=== PATIENT | female | born 1980 ===

== ENCOUNTER 2021-07-13 06:36 | Day surgery (SDC) | payer OTHER ==
[2021-07-08 12:37] LABS: Hematocrit 31.4 % (36.0-45.0); Lymphocytes % 27.6 % (15.3-44.8); MPV 8.6 fL (7.6-11.3); RBC Red Blood Cell Count 5.34 M/uL (3.86-4.86)
--- NOTE | 2021-07-08 12:37 | RAD REPORT ---
EXAM DESCRIPTION: RAD - Chest Pa And Lat (2 Views) - 07/08/2021 12:20 pm CLINICAL HISTORY: Pre op pending hysterectomy Chest pain. COMPARISON: No comparisons FINDINGS: The lungs are clear. The heart is normal in size. No displaced fractures. IMPRESSION: No acute or concerning finding suspected.
[2021-07-08 13:27] LABS: Platelet Estimate ADEQ; White Blood Cell Scan OK (OK)
[2021-07-08 13:28] LABS: Anisocytosis 3+
[2021-07-08 14:00] LABS: Urine Appearance CLEAR (Clear); Urine Bilirubin NEGATIVE (Negative); Urine Blood Trace-intact (Negative); Urine Color YELLOW (Yellow); Urine Glucose NEGATIVE (Negative); Urine Protein NEGATIVE (Negative); Urine Urobilinogen 0.2 mg/dL (0.2-1.0); Urine pH 5.5 (5.0-7.0)
[2021-07-08 14:01] LABS: Urine Microscopic Reflex ORDER UMIC
[2021-07-08 14:12] LABS: Urine Bacteria <20 /HPF (<20); Urine RBC <5 /HPF (NONE SEEN)
[2021-07-13 06:52] LABS: Specific Gravity > 1.030 (1.005-1.030)
[2021-07-13] MEDS ORDERED: BUPIVACAINE 0.25% PF 10 ML VIAL ONE ×2 (06:54→07:20)
[2021-07-13] MEDS ORDERED: propofoL 200 MG/20 ML VIAL IV ONE (07:00)
[2021-07-13] MEDS ORDERED: ROCURONIUM 50 MG/5 ML VIAL IV ONE (07:00)
[2021-07-13] MEDS ORDERED: FENTANYL CITR 250 MCG/5 ML ONE (07:01)
[2021-07-13] MEDS ORDERED: Ringers Lactate 1,000 ML IV ONE ×3 (07:01→14:55)
[2021-07-13] MEDS ORDERED: MIDAZOLAM HCL 2 MG/2 ML INJ ONE (07:01)
[2021-07-13] MEDS ORDERED: CEFAZOLIN/SWI 2gm 2 GM/20 ML SYR ONE (07:01)
[2021-07-13] MEDS ORDERED: LIDOCAINE 2% MPF 5 ML VIAL ONE (07:01)
[2021-07-13] MEDS ORDERED: SCOPOLAMINE HYDROBROMIDE PATCH TD ONE (07:01)
[2021-07-13] MEDS ORDERED: Phenylephrine HCl 10 MG/ML 1 ML VIAL ONE (08:10)
[2021-07-13] MEDS: Ringers Lactate 1,000 ML IV ONE ×2 (08:33→08:45)
[2021-07-13] MEDS ORDERED: KETOROLAC 30 MG/ML INJ ONE (09:57)
[2021-07-13] MEDS ORDERED: GLYCOPYRROLATE 0.2 MG/ML SYR ONE (09:58)
[2021-07-13] MEDS ORDERED: dexAMETHasone 10 MG/ML VIAL ONE (09:58)
[2021-07-13] MEDS ORDERED: ONDANSETRON 4 MG/2 ML VIAL ONE ×2 (09:58→11:00)
[2021-07-13] MEDS ORDERED: NEOSTIGMINE 1 MG/ML -5 ML ONE (09:58)
--- NOTE | 2021-07-13 10:49 | P.BOP ---
Preoperative diagnosis: AUB-A/Pelvic pain Deep dyspareunia Postoperative diagnosis: same , endometriosis, uterovaginal prolapse Primary procedure: TLH BS endometriosis excision,USLS colpopexy,cystoscopy Secondary procedure: bilateral ovariopexy [employer] Specialist: Vicky Bustillo Estimated blood loss: 50 Specimen: uterus tubes, Rt pararectal,Lf USL/pararectal,Lf ovarian endo Findings: bilateral pararectal endo/ Lf USL,lateral wall,Lf ovary, C=-2 Complications: None Fluids & blood products: 1700LR/ 200 UO Transferred to: Recovery Room Condition: Good (cuff closure, o-rich both ends, 2-0vlock 2layercuff closure, PDS for USLS,3-0monoc for ovariopexy)
[2021-07-13] MEDS ORDERED: PROMETHAZINE INJ 25 MG/ML AMP IV PRN (10:51)
[2021-07-13] MEDS ORDERED: HYDROCODONE/APAP 5/325 MG TAB PO PRN (10:51)
[2021-07-13] MEDS ORDERED: IBUPROFEN 200 MG TAB PO PRN (10:51)
[2021-07-13] MEDS ORDERED: MEPERIDINE HCL 25 MG/ML SYR IM PRN (10:51)
[2021-07-13] MEDS: HYDROMORPHONE HCL 1 MG/ML INJ ONE ×2 (11:00→11:05)
[2021-07-13] MEDS ORDERED: HYDROMORPHONE HCL 1 MG/ML INJ ONE (11:09)
[2021-07-13] MEDS ORDERED: PROMETHAZINE INJ 25 MG/ML AMP ONE (12:22)
[2021-07-13 13:32] VITALS: O2SAT 100
[2021-07-13] MEDS ORDERED: HYDROCODONE/APAP 5/325 MG TAB ONE (14:23)
[2021-07-13 15:48] VITALS: BP 124/61; TEMP 98.1
--- NOTE | 2021-07-13 23:34 | OP ---
Date of Procedure: 07/13/2021 Surgeon: Jade Voss MD Traffic Engineering Director: Vicky Andino. Preoperative Diagnoses: Abnormal uterine bleeding-leiomyoma, pelvic pain, deep dyspareunia. Postoperative Diagnoses: Abnormal uterine bleeding-leiomyoma, pelvic pain, deep dyspareunia, endomet riosis, uterovaginal prolapse. Primary Procedures: 1.Total laparoscopic hysterectomy with bilateral salpingectomy. 2.Endometriosis excision. 3.Uterosacral ligament suspension, colpopexy. 4.Bilateral ovariopexy and cystoscopy. Anesthesia: General endotracheal. Estimated Blood Loss: 50. Specimens: Uterus, tubes, right uterosacral, pararectal, and left ovarian endometriosis. Complications: No complications. Drains: No drains. Condition: The patient's condition is stable. Fluids: 1700 LR. Urine Output: 200. Findings: Bilateral pararectal spaces with endometriosis that were deep infiltrating on the right si de somewhat closer to the rectum but safely and completely dissected. Left uterosacral, left lateral wall, and left ovarian endometriosis; all these were removed accordingly and bilateral ovariopexy wa s performed in order for the ovaries not to dangle and get stuck in the posterior cul-de-sac as well as to prevent ovarian torsion. Cuff closure was done with 0 Vicryl sutures at both ends. 2-0 V-Loc was used for a two-layer cuff cl osure and 2-0 PDS was used for uterosacral ligament suspension, 1 stitch on both sides, and then 0 Mo nocryl stitch was used for ovariopexy. Indications: The patient is a 40-year-old female, G3, P2-0-1-2. She has been having severe dyspareu binh and pelvic pain, abnormal bleeding, has been treated medically with multiple different options, m ost recently for the past 2 years treated with elagolix, which is a GnRH antagonist. She had improve d, however, due to prolonged use of the medication, she had to come off it, and her pain and dyspareu binh were impairing quality of life in the past, then the recurrence for the problem. If treatment wa s not addressed and for permanent treatment, we would give her different options of endometriosis exc ision with endometrial ablation less ideal than laparoscopic hysterectomy, bilateral salpingectomy, a nd endometriosis excision. Procedure In Detail: After being consented, she was taken back to the OR, placed in a supine fashion on the operating table. General anesthesia was given. 2 g of Ancef were given. SCDs were started. Abdomen, vulva, vagina, and perineum were prepped and draped in a sterile fashion. Time-out was do ne. Procedure started. Speculum was placed to expose the cervix and large VCare introduced into the uterus and fixed in plac e. On pelvic exam, it was noted that at point C the uterus was at -2, so a suspension of the uterosa cral was planned. Clay was placed to drain the bladder and attached for retrograde filling and the bag left on the yvan or for drainage. 1 cm infraumbilical incision was made with a scalpel using the open laparoscopy technique. Fascia wa s incised, tagged with 0 Vicryl sutures, and peritoneum was entered sharply. S retractors were place d, and after Lucio was introduced and adequately insufflated, site of entry was checked and it was u nremarkable. Abdominal surface was unremarkable as well. No endometriosis here. The patient was placed in Trendelenburg. Two 5 left and right lower quadrant ports were placed under direct vision and a 10 suprapubic port. 0.25% Marcaine was injected at all these sites at the level of the fascia and skin before the incisions were made. After visualizing both ovaries, the left ovarian surface of the medial aspect had endometriosis. The n, there was endo immediately lateral to the uterosacral ligament between the ureter and the uterosac ral. Then, there were implants on the left uterosacral and medial aspect extending into the left par arectal space. Then, there was a right pararectal nodular endometriosis, pretty close to the border of the rectum on the right side. All these implants were planned to be excised and then hysterectomy done. Peritoneum between the ureter and the uterosacral ligament was opened up. The ureter was dissected l aterally, safeguarded all the way to the level of the ureteric tunnel. Then, the peritoneum between the uterine artery and the ureter was dissected, dissecting the endometriosis off the underlying stru ctures and cleanly removing this all the way to the uterosacral. Then, this specimen was dissected c ircumferentially going posterior to the vaginal cuff into the pararectal space and incision was made. Then, the peritoneal incision carried inferiorly around the entire implant and pararectal space was opened up between the rectum and the left uterosacral ligament. Then, the dissection was performed excising from underlying pararectal fat. All the lesions were excised and handed out for permanent p athology. Then, the right pararectal space was opened up right on the posterior wall of the vagina and dissecti on was carried between the endometriotic implant and the rectum. The rectal wall was identified and this was dissected off carefully with a sharp dissection as well as LigaSure as needed for hemostasi s. Then, the entire implant was from the right border of the rectum onto the lateral wall. Then, the circumferential incision on the right side was also performed to isolate the peritoneal i mplants. Then, the pararectal fat pad was used as a marker to take down all the implants till normal fat was seen. No evidence of any injury to the rectal wall. The specimen was handed off for perman ent pathology. Then, the ovarian endo was cauterized and excised. Hysterectomy was then performed. Round ligament and utero-ovarian ligament were taken down with the help of the LigaSure. Broad ligament opened up anteriorly, posteriorly. Bladder flap raised. Vesse ls were identified and isolated. Then, vessels were taken down with the help of the LigaSure as well as cardinal ligaments on the opposite side. Similar dissection was performed taking the utero-ovari an ligaments. Then, taking out the round ligament, broad ligament anteriorly, and connected to the b ladder flap posteriorly taking all the way to the posterior vaginal cuff. Vessels were isolated, seferino en down with the help of the LigaSure, and the tubes were removed separately, and handed out. Then, circumferential colpotomy was performed after the anterior vaginal wall was cleared up and the bladde r pushed down adequately at least for 1.5 cm. Then, circumferential colpotomy with a monopolar hook blade was performed and specimen was pulled out through the vagina. Went on to close the vaginal cuff after cauterizing 2 areas of the cup that were bleeding. Then, sim ple 0 Vicryl sutures were placed at both angles and tied outside the angles. Then, 2-0 V-Loc in 2 la yers was closed with excellent closure of the anterior posterior fascial connective tissue. Then, 2- 0 PDS was used then to supervisor transcribing operators the distal uterosacrals that were detached from endo treatment on the left side, reattached to the vaginal cuff, and then on the right side similar stitch was placed. The ureters were safeguarded while doing this. Then, moved onto a bilateral ovariopexy with 3-0 Monocry l attaching the ovaries to the round ligaments on the lateral aspects. She did have open internal in guinal rings on both sides. Once all these were performed, thorough irrigation and suction was perfo rmed. No evidence of electrical, mechanical, or thermal injury to the ureters. All the incisions we re closed; fascial incision at the umbilicus with 0 Vicryl tag sutures tied together, and simple 0 Vi cryl stitch at the suprapubic fascial site, all skin incisions with 3-0 interrupted chromic. Injected with Marcaine at the end of the incision closure. I went back and removed the vaginal sponge that was used as an in the Clay. Cystoscopy w as performed with a 17-[place] sheath, 30-degree lens. The jet of urine from the left side was very p rompt, on the right it was delayed, so Glidewire was placed, and once this was removed, there was an excellent jet. No evidence of any trauma or foreign body in the bladder. Bladder was drained. The patient was recovered from anesthesia. Instrument, needle, and sponge counts were correct at the end of the case. The patient was taken to the PACU. She has a 1-week followup with me. EBL as dictated above was 50 or less than 50. ROXANA/LAURAL Voice ID: [id number] Report ID: [id number]
[2021-07-14] MEDS ORDERED: DOXYCYCLINE HYCLATE 100 MG PO SCH (09:00)
[2021-07-14] MEDS ORDERED: HOME MED 1 EA UNK (Lactobacillus Acidophilus [Probiotic] Capsule) PO SCH (09:00)
[2021-07-14] MEDS ORDERED: HOME MED 1 EA UNK (Calcium Carbonate [Calcium] 600 MG Tablet) PO SCH (09:00)
== END 2021-07-13 15:33 | disposition home or self-care (01) ==
LOC: OR 06:36
PROVIDERS: ATTEND Obstetrics & Gynecology
PROC: 0UT74ZZ Resection of Bilateral Fallopian Tubes, Percutaneous Endoscopic Approach (ICD-10-PCS; 2021-07-13)
PROC: 0USG7ZZ Reposition Vagina, Via Natural or Artificial Opening (ICD-10-PCS; 2021-07-13)
PROC: 0UQ Female Reproductive System, Repair (ICD-10-PCS; 2021-07-13)
PROC: 0UDB8ZX Extraction of Endometrium, Via Natural or Artificial Opening Endoscopic, Diagnostic (ICD-10-PCS; 2021-07-13)
PROC: 0UT94ZZ Resection of Uterus, Percutaneous Endoscopic Approach (ICD-10-PCS; principal; 2021-07-13 07:30)
DX: N92.1 Excessive and frequent menstruation with irregular cycle (principal); N94.12 Deep dyspareunia; R10.2 Pelvic and perineal pain; D56.3 Thalassemia minor; F17.201 Nicotine dependence, unspecified, in remission; Z20.822 Contact with and (suspected) exposure to COVID-19; N72 Inflammatory disease of cervix uteri
CPT/HCPCS: 85025; 36415; 86900; 86850; 81025; 86901; 88305; 88307; 71046; 58571; 57283; 58999; 58662; U0002; J2704; J2550; J2370; J2250; J3010; J1100; J1170; J2710; J0690; J7120 ×4; J2405 ×2; 81003; 81015